=== PATIENT | male | born 1980 | race Two or more races ===

== ENCOUNTER 2022-07-13 11:01 | Emergency (ER) | payer MEDICAID ==
[~2022-07-13] VITALS: Ht 167.6 cm; Wt 72.6 kg
--- NOTE | 2022-07-13 11:17 | NUR ---
C/O HEADACHE S/P "SOMETHING FELL ON MY HEAD" PT SUSTAINE A 5CM LACERATION ON PAREITIAL ASPECT OF HEAD WITH MINIMAL BLEEDING. PT DENIES LOC.
--- NOTE | 2022-07-13 12:00 | NUR ---
AT BEDSIDE FOR LACERATION REPAIR
[2022-07-13] MEDS ORDERED: LIDOCAINE 1%-EPI 1:100,000 20 ML VIAL TP ONE (13:00)
[2022-07-13] MEDS ORDERED: LIDOCAINE 1%-EPI 1:100,000 20 ML VIAL ONE (13:19)
[2022-07-13] MEDS ORDERED: TDAP [DIPH/PERTUSSIS/TET] 0.5 ML VIAL IM ONE ×2 (14:00→14:24)
--- NOTE | 2022-07-13 14:00 | NUR ---
TDAP GIVEN AT LEFT DELTOID IM ORDER
[2022-07-13 14:38] VITALS: BP 129/61
--- NOTE | 2022-07-13 14:38 | NUR ---
Patient discharged to home in stable condition. Written and verbal after care instructions given. Patient verbalizes understanding of instruction.
== END 2022-07-13 14:39 | disposition home or self-care (01) ==
LOC: ER 11:20
DX: S01.01XA Laceration without foreign body of scalp, initial encounter (principal); W20.8XXA Other cause of strike by thrown, projected or falling object, initial encounter; Y93.89 Activity, other specified; Y92.89 Other specified places as the place of occurrence of the external cause; Y99.8 Other external cause status
CPT/HCPCS: 99285; 70450; 12002; 90471; 90715; A6403; J3490